=== PATIENT | female | born 1975 | race African-American/Black ===

== ENCOUNTER 2021-06-28 13:14 | Emergency (ER) | payer BC ==
[2021-06-28 13:20] VITALS: BP 128/81; PULSE 79; TEMP 97.8; BMI 34.7
[2021-06-28 14:21] LABS: BASO % 0.8 % (0-2.0); EOS % 2.3 % (0-4.5); LYMPH % 34.8 % (8-40); MCH 26.4 pg (25.7-33.7); MCHC 31.2 g/dl (32.0-36.0); MEAN CELL VOLUME 84.5 fl (80-96); MEAN PLT VOLUME 9.4 fl (7.5-11.1); MONO % 7.7 % (3.8-10.2); NEUT % 54.4 % (42.8-82.8); PLATELET COUNT 309 10^3/uL (134-434); RBC 3.78 M/mm3 (3.60-5.2); RDW 15.6 % (11.6-15.6)
[2021-06-28 14:25] LABS: EPI CELLS 32 /uL (0-25.1); HCG,QUALITATIVE URINE Negative; HYALINE CASTS 2 /uL (0-3.1); URINE APPEARANCE CLEAR; URINE BACTERIA 40 /uL (0-1359); URINE BILIRUBIN NEGATIVE (NEGATIVE); URINE COLOR YELLOW; URINE GLUCOSE (UA) NEGATIVE (NEGATIVE); URINE KETONE TRACE (NEGATIVE); URINE LEUK ESTERASE NEGATIVE (NEGATIVE); URINE NITRITE NEGATIVE (NEGATIVE); URINE PROTEIN TRACE (NEGATIVE); URINE RBC 57 /uL (0-23.9); URINE WBC 5 /uL (0-25.8)
[2021-06-28 14:42] LABS: CALCIUM 8.5 mg/dL (8.5-10.1)
[2021-06-28 14:43] LABS: ALBUMIN 3.3 g/dl (3.4-5.0); BLOOD UREA NITROGEN 11.6 mg/dL (7-18)
[2021-06-28 14:46] LABS: CREATININE 0.9 mg/dL (0.55-1.3)
[2021-06-28 14:48] LABS: BILIRUBIN,TOTAL 0.3 mg/dL (0.2-1); TOT PROT 7.7 g/dl (6.4-8.2)
== END 2021-06-28 15:08 | disposition home or self-care (01) ==
LOC: JER 13:14
DX: N93.9 Abnormal uterine and vaginal bleeding, unspecified (principal)
CPT/HCPCS: 36415; 80053; 81003; 84703; 85025; 99283-25

== ENCOUNTER 2021-12-12 15:57 | Inpatient (IN) | payer BC, OTHER ==
[2021-12-12] MEDS ORDERED: LACTATED RINGERS SOLUTION 1000 ML INFUS.BAG IV ONE (16:25)
[2021-12-12 17:36] LABS: VENOUS BASE EXCESS -3.2 mmol/L (-2-2); VENOUS O2 SATURATION 74.5 % (70-80); VENOUS PCO2 49.6 mmHg (38-52); VENOUS PH 7.296 (7.310-7.410)
[2021-12-12 17:42] LABS: BASO % 1.3 % (0-2.0); HEMATOCRIT 35.5 % (32.4-45.2); HEMOGLOBIN 11.1 GM/dL (10.7-15.3); LYMPH % 34.6 % (8-40); MCH 23.5 pg (25.7-33.7); MCHC 31.2 g/dl (32.0-36.0); MEAN CELL VOLUME 75.5 fl (80-96); MEAN PLT VOLUME 11.5 fl (7.5-11.1); MONO % 6.1 % (3.8-10.2); PLATELET COUNT 222 10^3/uL (134-434); RBC 4.71 M/mm3 (3.60-5.2); RDW 19.3 % (11.6-15.6); WHITE BLOOD COUNT 6.4 K/mm3 (4.0-10.0)
[2021-12-12 17:59] LABS: CHLORIDE 103 mmol/L (98-107); SODIUM 134 mmol/L (136-145)
[2021-12-12 18:01] LABS: ALBUMIN 3.7 g/dl (3.4-5.0); ANION GAP 6 MMOL/L (8-16); BLOOD UREA NITROGEN 12.3 mg/dL (7-18); CALCIUM 9.5 mg/dL (8.5-10.1); CO2 25 mmol/L (21-32); MAGNESIUM 2.3 mg/dL (1.8-2.4)
[2021-12-12 18:04] LABS: PHOSPHOROUS 2.9 mg/dL (2.5-4.9); SGPT/ALT 41 U/L (13-61)
[2021-12-12 18:05] LABS: CREATININE 0.9 mg/dL (0.55-1.3); SGOT/AST 28 U/L (15-37)
[2021-12-12 18:06] LABS: BILIRUBIN,TOTAL 0.2 mg/dL (0.2-1); TOT PROT 7.9 g/dl (6.4-8.2)
[2021-12-12 18:07] LABS: ALK PHOS 127 U/L (45-117)
[2021-12-12 18:16] LABS: EPI CELLS 2 /uL (0-25.1); HYALINE CASTS 0 /uL (0-3.1); URINE APPEARANCE CLEAR; URINE BACTERIA 12 /uL (0-1359); URINE BILIRUBIN NEGATIVE (NEGATIVE); URINE COLOR YELLOW; URINE GLUCOSE (UA) 3+ (NEGATIVE); URINE KETONE 1+ (NEGATIVE); URINE LEUK ESTERASE NEGATIVE (NEGATIVE); URINE NITRITE NEGATIVE (NEGATIVE); URINE PROTEIN NEGATIVE (NEGATIVE); URINE RBC 13 /uL (0-23.9); URINE WBC 2 /uL (0-25.8)
[2021-12-12 18:16] LABS: GLUCOSE,RANDOM 456 mg/dL (74-106)
[2021-12-12] MEDS ORDERED: SODIUM CHLORIDE 0.9% 500 ML INFUS.BAG IV ONE (18:31)
[2021-12-12] MEDS ORDERED: INSULIN REGULAR HUMAN 100 UNITS/ML *VIAL IVPUSH ONE (19:34)
[2021-12-12] MEDS ORDERED: INSULIN REGULAR HUMAN 100 UNITS/ML *VIAL ONE (19:37)
[2021-12-12] MEDS ORDERED: SODIUM CHLORIDE 1,000 ML IV SCH (21:00)
[2021-12-12] MEDS ORDERED: DEXTROSE 50%-WATER - 25 GM/50 ML VIAL IVPUSH PRN (21:41)
[2021-12-12] MEDS ORDERED: ENOXAPARIN NA (PORCINE) 40 MG/0.4 ML DISP.SYRIN SQ ONE (22:58)
[2021-12-12] MEDS: ENOXAPARIN NA (PORCINE) 40 MG/0.4 ML DISP.SYRIN SQ SCH (23:00)
[2021-12-12] MEDS: INSULIN SLIDING SCALE (NOVOLOG) 1 VIAL SQ SCH (23:40)
[2021-12-12 23:53] VITALS: BMI 34.2
[2021-12-13] MEDS: INSULIN SLIDING SCALE (NOVOLOG) 1 VIAL SQ SCH ×3 (06:25→16:49)
[2021-12-13] MEDS ORDERED: INSULIN (LEVEMIR) 100 UNITS/ML UNITS SQ SCH ×2 (07:00→22:00)
[2021-12-13 08:43] LABS: BASO % 0.9 % (0-2.0); EOS % 3.6 % (0-4.5); HEMATOCRIT 31.5 % (32.4-45.2); HEMOGLOBIN 9.8 GM/dL (10.7-15.3); LYMPH % 38.8 % (8-40); MCH 23.8 pg (25.7-33.7); MCHC 31.3 g/dl (32.0-36.0); MEAN CELL VOLUME 76.2 fl (80-96); MEAN PLT VOLUME 11.3 fl (7.5-11.1); MONO % 11.4 % (3.8-10.2); NEUT % 45.3 % (42.8-82.8); PLATELET COUNT 200 10^3/uL (134-434); RBC 4.13 M/mm3 (3.60-5.2); WHITE BLOOD COUNT 4.3 K/mm3 (4.0-10.0)
[2021-12-13 09:12] LABS: BLOOD UREA NITROGEN 7.5 mg/dL (7-18); CALCIUM 8.5 mg/dL (8.5-10.1); MAGNESIUM 2.1 mg/dL (1.8-2.4)
[2021-12-13 09:16] LABS: BILIRUBIN,TOTAL 0.5 mg/dL (0.2-1)
[2021-12-13 09:17] LABS: TOT PROT 6.6 g/dl (6.4-8.2)
[2021-12-13 09:24] LABS: CREATININE 0.6 mg/dL (0.55-1.3)
[2021-12-13] MEDS: ENOXAPARIN NA (PORCINE) 40 MG/0.4 ML DISP.SYRIN SQ SCH (09:28)
[2021-12-13 14:02] VITALS: BP 141/87; PULSE 82; TEMP 97.8
[2021-12-13] MEDS ORDERED: INSULIN (LEVEMIR) 100 UNITS/ML UNITS SQ ONE (17:40)
== END 2021-12-13 18:19 | disposition home health service (06) | DRG 420 ==
LOC: JER 15:57 → JERBED 21:24 → J6S 12-13 00:02
PROVIDERS: ADMIT Internal Medicine; ATTEND Internal Medicine
DX: E11.65 Type 2 diabetes mellitus with hyperglycemia (principal); E86.0 Dehydration; K21.9 Gastro-esophageal reflux disease without esophagitis; E66.9 Obesity, unspecified; Z68.34 Body mass index [BMI] 34.0-34.9, adult
CPT/HCPCS: 36415; 71045-TC-FY; 80053; 80061; 81003; 82010; 82803; 82962; 83036; 83735; 84100; 84436; 85025; 87086; 93005; 93010; 99285-25; C9803-CS; U0003; U0005

== ENCOUNTER 2023-09-28 11:04 | Emergency (ER) | payer BC, OTHER ==
[2023-09-28 11:10] VITALS: BP 135/83; PULSE 94; RESP 18; TEMP 97; BMI 31.8
[2023-09-28] MEDS: SODIUM CHLORIDE 0.9% 500 ML INFUS.BAG IV ONE (12:11)
[2023-09-28 13:06] LABS: POTASSIUM 4.8 mmol/L (3.5-5.1)
[2023-09-28 13:07] LABS: CALCIUM 9.6 mg/dL (8.5-10.1)
[2023-09-28 13:08] LABS: ALBUMIN 3.3 g/dl (3.4-5.0); BLOOD UREA NITROGEN 11.7 mg/dL (7-18)
[2023-09-28 13:10] LABS: EOS % 2.4 % (0-4.5); HEMATOCRIT 40.4 % (32.4-45.2); HEMOGLOBIN 12.9 GM/dL (10.7-15.3); LYMPH % 38.9 % (8-40); MCH 26.9 pg (25.7-33.7); MCHC 31.9 g/dl (32.0-36.0); MEAN CELL VOLUME 84.4 fl (80-96); MEAN PLT VOLUME 11.6 fl (7.5-11.1); MONO % 7.3 % (3.8-10.2); NEUT % 50.4 % (42.8-82.8); PLATELET COUNT 230 10^3/uL (134-434); RBC 4.79 M/mm3 (3.60-5.2); RDW 13.7 % (11.6-15.6); WHITE BLOOD COUNT 5.5 K/mm3 (4.0-10.0)
[2023-09-28 13:11] LABS: CREATININE 0.6 mg/dL (0.55-1.3)
[2023-09-28 13:13] LABS: BILIRUBIN,TOTAL 0.6 mg/dL (0.2-1); TOT PROT 8.1 g/dl (6.4-8.2)
== END 2023-09-28 14:09 | disposition home or self-care (01) ==
LOC: JER 11:04
DX: E11.65 Type 2 diabetes mellitus with hyperglycemia (principal); R53.83 Other fatigue; Z20.822 Contact with and (suspected) exposure to COVID-19
CPT/HCPCS: 0241U-QW; 36415; 80053; 82962; 83735; 84484; 84703; 85025; 93005; 93010; 99284-25